=== PATIENT | female | born 2000 | race Caucasian/White ===

== ENCOUNTER 2024-07-13 02:23 | Inpatient (IN) | payer OTHER, SELFPAY ==
[2024-07-12 23:52] VITALS: PULSE 111; O2SAT 99
[2024-07-12 23:55] VITALS: BP 141/76; PULSE 95; RESP 16; TEMP 36.8
[2024-07-12 23:59] VITALS: BMI 31.3
[2024-07-13] VITALS (82 sets, daily range): BP systolic 107–156; BP diastolic 57–95; PULSE 71–129; RESP 14–16; TEMP 36.3–37.2; O2SAT 91–100
--- NOTE | 2024-07-13 01:06 | OB.TRI.NOTE ---
HPI - General HPI Narrative LAKEISHA LINDSAYLIVE, is a 24 F who presents PFSH PFSH Allergy/AdvReac Type Severity Reaction Status Date / Time bee venom protein (honey bee) Allergy Swelling Verified 07/12/24 23:57
[2024-07-13 02:52] LABS: Absolute Lymphocyte Count 1.43 X10^3/uL (0.83-4.51); Basophil% 0.6 % (0-1); Eosinophil# 0.03 X10^3/uL; Eosinophils% 0.2 % (0-5); Hematocrit 33.4 % (37-47); Hemoglobin 10.7 g/dL (12.0-15.0); Lymphocyte # 1.43 X10^3/ul (0.83-4.51); Lymphocyte % 8.7 % (19-41); Mean Corpuscular Hgb 25.2 pg (27.0-32.0); Mean Corpuscular Volume 78.8 fL (81-99); Mean Platelet Vol. 10.7 fl (6.2-12.0); Monocyte# 0.77 X10^3/uL; Monocyte% 4.7 % (0-10); NRBC Flagged by Analyzer 0 % (0-5); Neutrophil % 85.1 % (47-70); Platelet Count 375 K/mm3 (150-450); RBC Distribution Width CV 13.4 % (11.6-14.6); RBC Distribution Width SD 37.8 fl (35.1-43.9); Red Blood Count 4.24 M/mm3 (4.2-5.4); White Blood Count 16.5 K/mm3 (4.4-11.0)
[2024-07-13] MEDS: 0.9% Saline Lock 10 ML Syringe IV (02:54)
[2024-07-13] MEDS: Ondansetron 4 MG/2 ML Vial IV (02:54)
[2024-07-13] MEDS: Lactated Ringers 1,000 ML 999 ML IV (03:56)
[2024-07-13] MEDS: Lactated Ringers 1,000 ML 50 ML IV (04:48)
[2024-07-13 04:51] LABS: Syphilis Antibodies Non-reactive
[2024-07-13] MEDS: fentaNYL-bupivacaine (epidural) 100 ML BAG EPIDURAL ×3 (04:51→16:05)
--- NOTE | 2024-07-13 06:26 | PCM.HP.OB ---
HPI - General General Date of Admission: 07/13/24 Date of Service: 07/13/24 Chief Complaint: Contractions HPI Narrative LAKEISHA SPENCER, is a 24 F who presents with increasingly painful contractions. No LOF. Cervical change from 2-3 to 4. Maternal Data Information Final CALVIN: 07/10/24 Gestational age: 40+4 PFSH PFSH Medical History Anxiety Allergy/AdvReac Type Severity Reaction Status Date / Time bee venom protein (honey bee) Allergy Swelling Verified 07/12/24 23:57 Family History no significant family his Social History Smoking Status: Former smoker History Elective abortions Hx Para 0 Spontaneous abortions Hx # Term Pregnancies Ectopic pregnancies Hx # Pregnancies Multiple births # of living children NST FHR Rate Baby A Baseline: 130 Variability:: Moderate Accelerations:: 15 x 15 Decelerations:: None NST Reactive:: Yes FHR Category:: Category I Uterine Activity:: q 5 ROS Constitutional Constitutional: Denies fatigue, fever(s) or malaise Eyes Eyes: Denies change in vision ENT HEENT: Denies dizziness or headache(s) Cardiovascular Cardiovascular: Denies chest pain, dyspnea or lightheadedness Respiratory/Chest Respiratory/Chest: Denies cough or dyspnea Gastrointestinal Gastrointestinal: Denies change in bowel habits Genitourinary Genitourinary: Denies burning urination or genital lesions Integumentary Integumentary: Denies rash Neurologic Neurologic: Denies confusion, dizziness, headache(s), numbness or weakness Vital Signs Vital Signs Vital Signs: 07/12/24 23:52 07/12/24 23:52 07/12/24 23:55 Temperature Temperature Source Pulse Rate 111 H Respiratory Rate Blood Pressure 141/76 H BP Systolic 141 BP Diastolic 76 Pulse Ox 99 07/12/24 23:55 07/12/24 23:55 07/12/24 23:55 Temperature Temperature Source Temporal Pulse Rate 95 Respiratory Rate 16 Blood Pressure BP Systolic BP Diastolic Pulse Ox 07/12/24 23:55 07/13/24 00:48 07/13/24 00:48 Temperature 98.3 F Temperature Source Pulse Rate 96 Respiratory Rate Blood Pressure BP Systolic BP Diastolic Pulse Ox 98 07/13/24 00:53 07/13/24 00:53 07/13/24 00:58 Temperature Temperature Source Pulse Rate 98 106 H Respiratory Rate Blood Pressure BP Systolic BP Diastolic Pulse Ox 97 07/13/24 00:58 07/13/24 01:03 07/13/24 01:03 Temperature Temperature Source Pulse Rate 129 H Respiratory Rate Blood Pressure BP Systolic BP Diastolic Pulse Ox 97 99 07/13/24 01:08 07/13/24 01:08 07/13/24 01:13 Temperature Temperature Source Pulse Rate 94 94 Respiratory Rate Blood Pressure BP Systolic BP Diastolic Pulse Ox 99 07/13/24 01:13 07/13/24 01:18 07/13/24 01:18 Temperature Temperature Source Pulse Rate 101 H Respiratory Rate Blood Pressure BP Systolic BP Diastolic Pulse Ox 98 97 07/13/24 01:23 07/13/24 01:23 07/13/24 01:28 Temperature Temperature Source Pulse Rate 106 H 96 Respiratory Rate Blood Pressure BP Systolic BP Diastolic Pulse Ox 97 07/13/24 01:28 07/13/24 01:33 07/13/24 01:33 Temperature Temperature Source Pulse Rate 95 Respiratory Rate Blood Pressure BP Systolic BP Diastolic Pulse Ox 99 99 07/13/24 01:38 07/13/24 01:38 07/13/24 01:43 Temperature Temperature Source Pulse Rate 94 90 Respiratory Rate Blood Pressure BP Systolic BP Diastolic Pulse Ox 98 07/13/24 01:43 07/13/24 01:48 07/13/24 01:48 Temperature Temperature Source Pulse Rate 113 H Respiratory Rate Blood Pressure BP Systolic BP Diastolic Pulse Ox 99 97 07/13/24 01:53 07/13/24 01:53 07/13/24 01:58 Temperature Temperature Source Pulse Rate 111 H 90 Respiratory Rate Blood Pressure BP Systolic BP Diastolic Pulse Ox 97 07/13/24 01:58 07/13/24 02:03 07/13/24 02:03 Temperature Temperature Source Pulse Rate 100 Respiratory Rate Blood Pressure BP Systolic BP Diastolic Pulse Ox 98 98 07/13/24 02:05 07/13/24 02:05 07/13/24 04:33 Temperature Temperature Source Pulse Rate 114 H 126 H Respiratory Rate Blood Pressure BP Systolic BP Diastolic Pulse Ox 93 07/13/24 04:33 07/13/24 04:36 07/13/24 04:36 Temperature Temperature Source Pulse Rate 102 H Respiratory Rate Blood Pressure 156/87 H BP Systolic 156 BP Diastolic 87 Pulse Ox 91 07/13/24 04:38 07/13/24 04:38 07/13/24 04:40 Temperature Temperature Source Pulse Rate 102 H Respiratory Rate Blood Pressure 156/91 H BP Systolic 156 BP Diastolic 91 Pulse Ox 100 07/13/24 04:40 07/13/24 04:43 07/13/24 04:43 Temperature Temperature Source Pulse Rate 118 H 104 H Respiratory Rate Blood Pressure BP Systolic BP Diastolic Pulse Ox 100 07/13/24 04:44 07/13/24 04:44 07/13/24 04:48 Temperature Temperature Source Pulse Rate 101 H 105 H Respiratory Rate Blood Pressure 143/69 H BP Systolic 143 BP Diastolic 69 Pulse Ox 07/13/24 04:48 07/13/24 04:49 07/13/24 04:49 Temperature Temperature Source Pulse Rate 105 H Respiratory Rate Blood Pressure 128/62 H BP Systolic 128 BP Diastolic 62 Pulse Ox 100 07/13/24 04:54 07/13/24 04:54 07/13/24 04:55 Temperature Temperature Source Pulse Rate 97 Respiratory Rate Blood Pressure 137/69 H 132/62 H BP Systolic 137 132 BP Diastolic 69 62 Pulse Ox 07/13/24 04:55 07/13/24 04:59 07/13/24 04:59 Temperature Temperature Source Pulse Rate 101 H 102 H Respiratory Rate Blood Pressure 137/70 H BP Systolic 137 BP Diastolic 70 Pulse Ox 07/13/24 05:01 07/13/24 05:01 07/13/24 05:01 Temperature 97.5 F L Temperature Source Temporal Pulse Rate Respiratory Rate 16 Blood Pressure BP Systolic BP Diastolic Pulse Ox 07/13/24 05:05 07/13/24 05:05 07/13/24 05:09 Temperature Temperature Source Pulse Rate 98 Respiratory Rate Blood Pressure 140/68 H 140/78 H BP Systolic 140 140 BP Diastolic 68 78 Pulse Ox 07/13/24 05:09 07/13/24 05:14 07/13/24 05:14 Temperature Temperature Source Pulse Rate 98 93 Respiratory Rate Blood Pressure 140/75 H BP Systolic 140 BP Diastolic 75 Pulse Ox 07/13/24 05:20 07/13/24 05:20 07/13/24 05:25 Temperature Temperature Source Pulse Rate 90 Respiratory Rate Blood Pressure 143/73 H 139/72 H BP Systolic 143 139 BP Diastolic 73 72 Pulse Ox 09/27/24 05:25 07/13/24 05:29 07/13/24 05:29 Temperature Temperature Source Pulse Rate 93 94 Respiratory Rate Blood Pressure 134/66 H BP Systolic 134 BP Diastolic 66 Pulse Ox 07/13/24 05:34 07/13/24 05:34 07/13/24 05:39 Temperature Temperature Source Pulse Rate 88 Respiratory Rate Blood Pressure 133/68 H 124/64 H BP Systolic 133 124 BP Diastolic 68 64 Pulse Ox 07/13/24 05:39 07/13/24 05:44 07/13/24 05:44 Temperature Temperature Source Pulse Rate 88 85 Respiratory Rate Blood Pressure 129/63 H BP Systolic 129 BP Diastolic 63 Pulse Ox 07/13/24 05:49 07/13/24 05:49 07/13/24 05:54 Temperature Temperature Source Pulse Rate 86 Respiratory Rate Blood Pressure 122/60 H 127/60 H BP Systolic 122 127 BP Diastolic 60 60 Pulse Ox 07/13/24 05:54 Temperature Temperature Source Pulse Rate 83 Respiratory Rate Blood Pressure BP Systolic BP Diastolic Pulse Ox Weight Weight: 80.286 kg Body Mass Index (BMI) 31.3 Physical Exam Const alert and no apparent distress General Appearance: cooperative HEENT normocephalic Resp normal respiratory effort Cardio regular rate GI soft to palpation GI Narrative: gravid, nontender, appropriate for gestational age Extremity no calf tenderness General Extremity: edema Skin no wounds Rashes: No rashes noted Psych activity/motor behavior normal Labs Labs Labs: Blood Type O POSITIVE Antibody Screen NEGATIVE Hct 33.4 % (37-47) L Hgb 10.7 g/dL (12.0-15.0) L Syphilis Total Ab Non-reactive Assessment & Plan (1) 40 weeks gestation of : (2) Normal labor: PLAN: Plan Admit for labor Requests epidural GBS negative
--- NOTE | 2024-07-13 08:07 | PN.OBGYN_ITS ---
Subjective Subjective Patient seen at bedside. Comfortable with epidural. Objective Data Objective Data Vital Signs: Vital Signs Temp Pulse Resp BP Pulse Ox 97.4 F L 80 14 125/59 H 98 07/13/24 07:13 07/13/24 07:14 07/13/24 07:13 07/13/24 07:14 07/13/24 07:13 Weight: 177 lb Body Mass Index (BMI) 31.3 Intake & Output: Intake and Output for Last 24 Hours 07/11/24 07/12/24 07/13/24 23:59 23:59 23:59 Intake Total 4.17 / 4.17 Balance 4.17 / 4.17 Lab / Micro Data 07/13/24 02:35 Labs: Laboratory Results - last 24 hr 07/13/24 02:35: WBC 16.5 H, RBC 4.24, Hgb 10.7 L, Hct 33.4 L, MCV 78.8 L, MCH 25.2 L, MCHC 32.0, RDW Std Deviation 37.8, RDW Coeff of Roshan 13.4, Plt Count 375, MPV 10.7, Immature Gran % (Auto) 0.700, Neut % (Auto) 85.1 H, Lymph % (Auto) 8.7 L, [place] % (Auto) 4.7, Eos % (Auto) 0.2, Baso % (Auto) 0.6, Absolute Neuts (auto) 14.0 H, Absolute Lymphs (auto) 1.43, Nucleated RBC % 0, Syphilis Total Ab Non- reactive, Blood Type O POSITIVE, Antibody Screen NEGATIVE Physical Exam Const alert, oriented x3 and no apparent distress General Appearance: cooperative Orientation / Consciousness: awake Exam Limitations: no limitations HEENT normocephalic Head and Scalp: normal to inspection Eyes General Eye: normal appearance of both eyes Neck full ROM and no lymphadenopathy Lymph Lymphatic: no lymphadenopathy noted Chest inspection of chest normal Resp normal respiratory effort, normal air movement and clear to auscultation bilaterally Effort and Inspection: able to speak in complete sentences and symmetric chest movement Cardio regular rate and regular rhythm GI normal to inspection, nondistended, normoactive bowel sounds Manual OB Exam: presentation cephalic, dilated 4, effaced 80 and station 0 Amniotic Fluid: clear amniotic fluid Back/Spine normal ROM Extremity full ROM and no calf tenderness Skin no rashes or lesions noted General Skin Exam: no breakdown Neuro oriented x3 and CN's II-XII intact bilaterally Psych mental status grossly normal and thought process normal Assessment & Plan (1) Spontaneous onset of labor: (2) Post-dates : (3) Anxiety and depression: (4) Heartburn during : PLAN: Plan CE /-2 Bulging bag AROM for moderate amount of clear fluid Continues to make cervical change without Pitocin at this time Anticipate
[2024-07-13] MEDS: Lactated Ringers 1,000 ML 200 ML IV ×2 (09:18→14:05)
[2024-07-13] MEDS: Oxytocin 10 UNITS/ML Vial IM (16:36)
[2024-07-13] MEDS: Oxytocin 15 Units/NS 250ml 15 UNITS/250 ML IV.SOLN 83 UNITS IV (16:42)
--- NOTE | 2024-07-13 16:47 | EX.PCM.OBRPT ---
Assessment & Plan (1) (spontaneous vaginal delivery): (2) Care and examination of lactating mother: Vaginal Delivery Maternal Presentation Maternal Presentation: that presented in spontaneous labor Type of Induction: Amniotomy (augment) Operative Information Date of Procedure: 07/13/24 Pre-Operative Diagnosis: Term gestation, spontaneous onset of labor Post-Operative Diagnosis: , Live female infant Surgery / Procedure Performed: Spontaneous Vaginal Delivery Type of Anesthesia: Epidural Estimated Blood Loss: 150 Time of Delivery: 16:34 Findings Description of Procedure: Patient progressed to complete dilation. Provided bedside support during pushing. With good maternal effort, head delivered followed by anterior shoulder and remainder of infant body without any force, delay or traction. Nuchal cord x2 around neck and x1 around body easily reduced. Vigorous female was delivered atraumatically and placed on maternal abdomen. Pitocin IM given for active management of the third stage of labor. 3 vessel cord clamped and cut after delay and placed immediately skin to skin with patient. Cord blood collected and sent. Placenta delivered spontaneously and intact. After inspection, it was noted there were no vaginal or perineal lacerations. Vaginal sweep performed. Fundus is firm and bleeding hemostatic. Patient and bonding well at this time. Dr. Pizano notified of delivery. Routine post orders placed. Presentation: Vertex Amniotic Membrane Rupture Type: Artificial Time of Membrane Rupture: 820 Amniotic Fluid Description: Clear Placental Delivery Description: Spontaneous Placenta Disposition: [facility] Cord Vessel Description: 3 Vessels Cord Entanglement: Around neck x 2, loose and - (Around body x 1 loose) Nuchal Cord Compression: Without compression Infant A Gender: Female (1 minute): 8 (5 minute): 9 Delayed Cord Clamping: Yes Post Vaginal Delivery Medications Given After Delivery: IV Pitocin and IM Pitocin Episiotomy Description: None Laceration: None Complication Complications: None
[2024-07-14] VITALS (10 sets, daily range): BP systolic 125–145; BP diastolic 64–84; PULSE 74–93; RESP 14–16; TEMP 36.5–36.8; O2SAT 97–99
[2024-07-14] MEDS: Acetaminophen 500 MG Tablet 1000 MG PO (00:21)
[2024-07-14] MEDS: Naproxen 500 MG Tablet PO (07:43)
--- NOTE | 2024-07-14 07:54 | PCM.PN.CNM ---
Subjective Subjective Patient seen at bedside. Denies any pain. Ambulating and voiding without difficulty. Lochia is moderate. with support. Objective Data Objective Data Vital Signs: Vital Signs Temp Pulse Resp BP Pulse Ox O2 Del Method 98.3 F 93 14 130/76 H 98 Room Air 07/14/24 07:22 07/14/24 07:22 07/14/24 07:22 07/14/24 07:22 07/14/24 07:22 07/14/24 07:22 Oxygen Delivery Method Room Air Weight: 177 lb Body Mass Index (BMI) 31.3 Intake & Output: Intake and Output for Last 24 Hours 07/12/24 07/13/24 07/14/24 23:59 23:59 23:59 Intake Total 5594.17 / 5594.17 Output Total 2450 / 2450 500 / 500 Balance 3144.17 / 3144.17 -500 / -500 Lab / Micro Data Attestation: I reviewed the patient's lab results. 07/13/24 02:35 ROS Eyes Eyes: Denies blurry vision, change in vision or spots in vision ENT HEENT: Denies dizziness or headache(s) Cardiovascular Cardiovascular: Denies abdominal pain, chest pain or dyspnea Respiratory/Chest Respiratory/Chest: Denies cough, dyspnea, shortness of breath at rest or shortness of breath with exertion Gastrointestinal Gastrointestinal: Denies abdominal pain, diarrhea or vomiting Genitourinary Genitourinary: Denies change in urinary stream, difficulty urinating or dysuria Musculoskeletal Musculoskeletal: Reports none Integumentary Integumentary: Denies rash Neurologic Neurologic: Denies dizziness, headache(s), memory loss or weakness Physical Exam Const alert and no apparent distress General Appearance: cooperative and comfortable Exam Limitations: no limitations HEENT normocephalic Eyes General Eye: normal appearance of both eyes Neck full ROM General: normal visual inspection Chest Chest: symmetrical chest wall rise Resp normal respiratory effort and normal air movement Effort and Inspection: symmetric chest movement Auscultation: clear to auscultation bilaterally Cardio regular rate and regular rhythm GI normal to inspection, nondistended, normoactive bowel sounds Back/Spine normal ROM Extremity full ROM and no calf tenderness General Extremity: normal exam except as noted Skin no rashes or lesions noted Neuro oriented x3 Speech: speech normal Psych mental status grossly normal Thought Process: normal thought process Assessment & Plan (1) Care and examination of lactating mother: (2) (spontaneous vaginal delivery): (3) Anxiety and depression: (4) Normal labor: PLAN: Plan PPD 1 support Increase ambulation and independent care Anticipate discharge home tomorrow
--- NOTE | 2024-07-14 08:08 | DCINST_ITS ---
Discharge Instructions Diet Discharge Diet: No restrictions Activity Discharge Activity: Return to Normal Activity, No Restrictions, May Drive, May Shower and May Take a Tub Bath (Warm water only. No bath salts, soaps, bubbles) May resume sexual activity in: 6-8 weeks Weight Bearing Status: Weight bearing as tolerated Dressing / Incision Call your doctor if you observe: Fever of 101 or Higher, Inability to urinate, Using more than 1 pad per hour, Shortness of breath, Dizziness, Chest pain, Calf discomfort and Uncontrolled pain Follow Up Care Please Follow Up With: [facility] Cathryn NAQVI When: 2 weeks in office or virtual Test Results: Test results from this visit will be discussed in further detail at your follow- up appointment, if applicable. Discharge Plan Admission Admit Date/Time: 07/13/24 02:23 Primary Reason for Your Visit: Labor and Delivery Attending Provider: Jacklyn Hooper Primary Care Provider: Care PhysicianMargarita Primary Discharge Orders/Prescriptions Referrals / Follow Up: Care Physician,No Primary [Primary Care Provider] - Jacklyn Hooper CNM [Med Staff - Adv Practice Prof] - Disposition Disposition (needs filled in before D/C Order can be placed): Home, Self Care
[2024-07-14] MEDS: Benzocaine/Lanolin/Aloe Vera 85 GM Spray 1 SPRAY TOPICAL (10:10)
--- NOTE | 2024-07-14 14:15 | CASEMGMT ---
Social Work Assessment Labor and Delivery Unit Patient Address: [address] [place] [address] [address] [place] [address] Phone number: Date of Referral: 07/13/2024 Time of Referral: 02:45 Referred By: Sue Sidhu Date of Intervention: ?07/14/2024 Time of Intervention: 14:17 Reason for Referral: ?Other? (history of depression and anxiety) and parental use of drugs/alcohol History obtained from: Medical records, mother of baby (MOB) and father of baby (FOB).? Household composition: MOB, Steph Sprague, age 23, FOB, Morgan Sprague, age 21 and daughter Clara Fernando, born 07/13/2024. Neither MOB nor FOB have any other children. Patient's parent/guardian status: MOB and FOB have been together for 7 years and for 1 year. ??Both are actively involved and will be providing care for baby. MERCED denied any concerns with domestic violence and described a positive and supportive relationship with her Medical History: ?MERCED has had 1 and one live . MERCED received care through [facility] beginning at 8 weeks and 0 days. Visits appeared to be routine. Apgars: 8 and 9. Weight: 3430 grams.? Television Repairer: Dr. Sherley Cloud. Educational Status: MOB and FOB denied any issues or concerns with reading or writing. MOB and FOB both earned a High School Diploma. Financial Status: MOB and FOB reported their income is sufficient to meet the needs of their family at this time. MOB is currently employed [employer] and has 12 weeks maternity and FOSimon is currently employed [employer] and has 2 weeks of vacation he is using. Supplies: MOB and FOB reported they have all the supplies they need for at this time including but not limited to: Car Seat, bassinet, crib, diapers, bottles, breast pump and clothing. Childcare/Caregiver(s):? MOB and FOB will share childcare responsibilities and during the time when MOB and FOB are working, the maternal grandmother (MGM) or a designated pastor will provide childcare.? Transportation:? MOB and FOB reported they are both licensed drivers and have a reliable vehicle to take baby to and from all medical appointments. No transportation issues identified. Programs/Agencies Involved: MOB and FOB denied any current programs or agencies involved at this time. Expressive Music Therapist provided information on how to apply for benefits if eligible as well as WIC. Children Services/Legal Issues:? Denied. Behavioral Health Issues: ??Mental Health History: ?MERCED has a history of anxiety and depression. MOB has never been involved in counseling and is not on any medications at this time to treat however reported mental health needs are successfully managed at this time. FOB denied any history or current issues with mental health. ?Substance Use History:? MOB and FOB denied any current or history of alcohol or drug abuse. ?Family History: Per MOB?s report, MGM and maternal grandfather ( MGF) are both alcoholics. MOB reported the MGF drinks from the time he awakes until the time he goes to bed but was described as a functioning alcoholic. MGM reportedly doesn?t start drinking until the evening and doesn?t drink every night.? Expressive Music Therapist provided education in terms of childcare and ensuring that whomever provides childcare during MOB and FOB?s absence not impaired or under the influence for safety reasons which MOB was agreeable with. MOB again denied that the MGM drinks during the day and also reported having a back up plan with a pastor if needed. ???Drug Screens: ?None obtained at the time of this admission. ? Family/Social Stressors: ?MOB and FOB denied any current family or social stressors. Support Systems: Ample.? MERCED identified her biggest supports as the FOB and MGP?s.? MGP?s live next door to the MOB and FOB. Depression/Shaken Baby/Safe Sleeping: coke worker provided verbal and written education on PPD, Safe Sleeping and Shaken Baby.? Parents verbalized an understanding. ??? ASSESSMENT:? MOB and FOB provided consent to social work visit. Upon arrival, MOB had just gotten out of the shower and the FOB was sitting nearby in a chair holding .? MOB and FOB were both verbally engaged and cooperative. coke worker observed positive interaction between MOB and FOB and both appeared to be attached and bonded to .? FOB was observed to hold baby close to him and looked at frequently and would rub newborns hands, head and fingers.? At the end of the assessment, high school social science teacher requested to talk with the MOB alone at which time the MOB went over and took and was holding and was also very gentle and attentive. MOB reported she feels safe at home, denied any domestic violence, unmanaged mental health issues with self or the FOB and also denied any drug or alcohol use/abuse concerns with self or the FOB. Safe Plan of Care for related to substance use: N/A; not needed. ? PLAN:? Baby to be discharged home when ready.? coke worker also provided written information on depression, depression resources and Help Me Grow as additional resources offered by high school social science teacher which MOB and FOB accepted. No other services requested or indicated. Sue Ames, PRESETTER OPERATOR, SALES SYSTEMS ENGINEER
[2024-07-15 03:03] VITALS: BP 138/68; PULSE 65; RESP 16; TEMP 36.1
--- NOTE | 2024-07-15 08:12 | PCM.DC.SUM ---
Providers Date of Admission: 07/13/24 Primary Care Physician: Margarita Primary Care Phys Reason For Visit: VAGINAL DELIVERY Diagnosis Discharge Diagnosis (1) Care and examination of lactating mother: Status: Acute Code(s): Z39.1 - Encounter for care and examination of lactating mother (2) (spontaneous vaginal delivery): Status: Acute Code(s): O80 - Encounter for full-term uncomplicated delivery (3) Anxiety and depression: Status: Acute Code(s): F41.9 - Anxiety disorder, unspecified; F32.A - Depression, unspecified (4) Normal labor: Status: Acute Code(s): O80 - Encounter for full-term uncomplicated delivery; Z37.9 - Outcome of delivery, unspecified Plan PPD 2 support D/C home with follow up in office for pp visit Medications at Discharge Home Medications acetaminophen 500 mg tablet 1,000 mg (2 x 500 mg) PO Q6H PRN PRN Pain 1-10 Or Fever #0 tabs 07/15/24 naproxen 500 mg tablet 500 mg PO Q8H PRN PRN Pain Score 1-10 #0 tabs 07/15/24 Hospital Course Operations None Procedures None Summary of Care Provided Minutes Spent on Discharge: 15 Hospital Course: Patient had vaginal delivery. Hospital course was uneventful. Physical Exam Narrative Patient seen at bedside. Denies pain. Ambulating and voiding without difficulty. Lochia decreased. Desires discharge home today. Const alert and oriented x3 General Appearance: Negative for in distress HEENT normocephalic Eyes General Eye: normal appearance of both eyes Neck General: normal visual inspection Chest Chest: symmetrical chest wall rise Resp normal respiratory effort and normal air movement Effort and Inspection: symmetric chest movement; Negative for tachypneic Auscultation: clear to auscultation bilaterally Cardio regular rate and regular rhythm Peripheral Pulses: pulses 2+ throughout GI normal to inspection, nondistended, normoactive bowel sounds Narrative: Ice to perineum OB / External & Speculum: vaginal bleeding and other Lochia decreasing Uterus Palpation: uterus fundus firm (Below U) Extremity normal to inspection, full ROM and normal capillary refill Skin no rashes or lesions noted Neuro oriented x3, CN's II-XII intact bilaterally and gait normal Psych mental status grossly normal, thought process normal and activity/motor behavior normal Weight / BMI Weight Weight: 177 lb Body Mass Index (BMI) 31.3 ABG / Lab / Microbiology Data 07/13/24 02:35 D/C Instructions Discharge Diet: No restrictions Discharge Activity: Return to Normal Activity, No Restrictions, May Drive, May Shower and May Take a Tub Bath (Warm water only. No bath salts, soaps, bubbles) May resume sexual activity in: 6-8 weeks Weight Bearing Status: Weight bearing as tolerated Call your doctor if you observe: Fever of 101 or Higher, Inability to urinate, Using more than 1 pad per hour, Shortness of breath, Dizziness, Chest pain, Calf discomfort and Uncontrolled pain Please Follow Up With: [facility] Cathryn [id number] When: 2 weeks in office or virtual Meaningful Use Info Meaningful Use Meaningful Use Diagnoses (Choose all that apply): None applicable Ischemic Stroke Statin Dosing Therapy Reference: STATIN DOSE THERAPY REFERENCE: * Patients > 75 years receive moderate or high dose statin therapy. * Patients 75 years or YOUNGER should receive HIGH intensity statin dose unless contraindicated. You will be required to document reason for non-treatment if statin daily dose does not meet guidelines. HIGH DOSE STATIN THERAPY DAILY Atorvastatin > than or = to 40 mg Rosuvastatin > than or = to 20 mg Amlodipine + Atorvastatin > than or = to 2.5/40 mg Ezetimibe + Simvastatin 10/80 mg Simvastatin 80mg Discharge Plan Admission Admit Date/Time: 07/13/24 02:23 Primary Reason for Your Visit: Labor and Delivery Attending Provider: Jacklyn Hooper Primary Care Provider: Care Physician,No Primary Discharge Orders/Prescriptions Prescriptions: New acetaminophen 500 mg Tablet 1,000 mg PO Q6H PRN PRN (Reason: Pain 1-10 Or Fever) Qty: 0 0RF naproxen 500 mg Tablet 500 mg PO Q8H PRN PRN (Reason: Pain Score 1-10) Qty: 0 0RF Referrals / Follow Up: Jacklyn Hooper CNM [Med Staff - Pending Sale To [facility]] - Care Physician,No Primary [Primary Care Provider] - Disposition Disposition (needs filled in before D/C Order can be placed): Home, Self Care
[2024-07-15 08:18] VITALS: BP 138/68; PULSE 83; PULSE 84; RESP 14; TEMP 36.6; O2SAT 98; O2SAT 99
== END 2024-07-15 11:50 | disposition home or self-care (01) | DRG 807 ==
LOC: WPOUT 02:24 → WP 02:24
PROVIDERS: Obstetrics & Gynecology; Admitting Provider Advanced Practice Midwife; Referring Provider Advanced Practice Midwife; Visit Provider Advanced Practice Midwife
DX: O48.0 Post-term pregnancy (principal); Z37.0 Single live birth; O99.344 Other mental disorders complicating childbirth; F32.A Depression, unspecified; F41.9 Anxiety disorder, unspecified; Z87.891 Personal history of nicotine dependence; Z3A.40 40 weeks gestation of pregnancy; O69.81X0 Labor and delivery complicated by cord around neck, without compression, not applicable or unspecified
CPT/HCPCS: 59025; 59050; 85025; 86780; 86850; 86900; 86901; 99221; J7120; A4216; G0378; J2405